=== PATIENT | male | born 1955 | race Caucasian/White ===

== ENCOUNTER → 2016-06-29 | Outpatient (CLI) | payer OTHER ==
[2016-03-19 20:08] VITALS: BP 141/81
--- NOTE | 2016-06-29 09:58 | US ---
HISTORY: Right upper quadrant pain, nausea, vomiting Study: Right upper quadrant ultrasound Comparison: None Findings: The liver is normal in size and configuration and without significant focal cyst, mass, or biliary d uctal dilatation. No gallstones are present within the gallbladder. Gallbladder wall thickness was n ormal. The common duct measured 1.5 millimeters. The right kidney measured 10.8 x 7.2 x 6.5 centimet ers and demonstrated no solid masses, hydronephrosis, stones, or perinephric fluid collections. The pancreas was obscured by overlying bowel gas. IMPRESSION: No significant abnormality identified Reported By:
== END ==
LOC: RAD 08:36
PROVIDERS: ATTEND Nurse Practitioner Family
DX: R10.11 Right upper quadrant pain (principal); R10.84 Generalized abdominal pain; R11.2 Nausea with vomiting, unspecified; R19.7 Diarrhea, unspecified
CPT/HCPCS: 76705

== ENCOUNTER → 2016-07-01 | Outpatient (CLI) | payer OTHER ==
[2016-03-19 20:08] VITALS: BP 141/81
--- NOTE | 2016-07-01 13:55 | NM ---
HIDA SCAN WITH EJECTION FRACTION. HISTORY: Right upper quadrant pain Comparison: None Technique: Multiple scintigraphic images of the abdomen were obtained the intravenous administration of 5.5 mCi of technetium labeled Choletec. Following distention of the gallbladder with radiotracer a 8 oz boost was given. An estimated gallb ladder ejection fraction was calculated. Findings: Homogeneous uptake of radiotracer is seen throughout the liver. The intrabiliary ductal system is o bserved normally. The common hepatic and common bile duct appear unremarkable with normal biliary-b owel transit. The gallbladder is observed to fill normally. A decreased gallbladder ejection fraction of 18.5 (normal > 35%) is observed. IMPRESSION: 1. No evidence of cystic duct obstruction. 2. Decreased gallbladder ejection fraction of 18.5 percent. Reported By:
== END ==
LOC: RAD 08:50
PROVIDERS: ATTEND Nurse Practitioner Family
DX: R10.11 Right upper quadrant pain (principal); R10.84 Generalized abdominal pain; R11.2 Nausea with vomiting, unspecified; R19.7 Diarrhea, unspecified
CPT/HCPCS: 78227

== ENCOUNTER 2018-02-28 18:55 | Inpatient (IN) ==
[2018-02-28 22:42] LABS: ABG BASE EXCESS 1.2 mmol/L (-2.0-2.0)
[2018-02-28 22:43] LABS: BASOPHILS % (AUTO) 0.4 % (0.2-1.0); HEMATOCRIT 45.8 % (42.0-54.0); HEMOGLOBIN 15.5 g/dL (13.5-18.0); LYMPHOCYTES # (AUTO) 1.6 X10^3/uL (1.3-2.9); LYMPHOCYTES % (AUTO) 14.3 % (21.0-51.0); MEAN CORPUSCULAR HEMOGLOBIN 30.3 pg (27.0-34.0); MEAN CORPUSCULAR HGB CONC 33.8 g/dL (33.0-35.0); MEAN CORPUSCULAR VOLUME 89.9 fL (80.0-100.0); MEAN PLATELET VOLUME 8.5 fL (7.4-11.0); MONOCYTES # (AUTO) 0.9 x10^3/uL (0.3-0.8); MONOCYTES % (AUTO) 7.7 % (0.0-13.0); NEUTROPHILS # (AUTO) 8.7 x10^3/uL (2.2-4.8); NEUTROPHILS % (AUTO) 77.6 % (42.0-75.0); PLATELET COUNT 131 X10^3/uL (150.0-450.0); RED BLOOD COUNT 5.09 X10^6/uL (4.7-6.0); RED CELL DISTRIBUTION WIDTH 13.9 % (11.6-16.5); WHITE BLOOD COUNT 11.2 X10^3/uL (3.6-10.0)
[2018-02-28 22:43] LABS: ABG ALLEN TEST POS
--- NOTE | 2018-02-28 22:44 | DR.URIAD ---
HPI Time Seen Time Seen by Provider: 02/28/18 22:31 PCP Primary Care Physician: BRYAN Complaint Chief Complaint:: PT C/O SORE THROAT COUGH FEVER CHEST WALL PAIN FROM COUGHING Self Treatment fo Chief Complaint: BEEN TREATED BY JARETH Source History Provided: Patient Mode of Arrival Mode of Arrival: Ambulatory Timing Onset of Chief Complaint: 02/26/18 PMH PMH Past Medical History: Yes Past Medical History: Arthritis, Asthma, COPD, Diabetes, Dyslipidemia, GERD, Hypertension, [place] and Sleep Apnea Past Surgical History: Yes Surgical History: Cholecystectomy and Ortho Surgery Past Surgical History Comment: NECK,BACK,RT HAND,TESTICLES HYDROCYLE Family History History of Family Medical Conditions: Yes Family Medical History: Diabetes Mellitus, Cancer, [place] and Hypertension Social History Does any household member use tobacco: No Alcohol Use: None Do you use any recreational Drugs:: No Lives With: Family Lives Where: Home infectious screening In the last 2 months have you had wt loss of >10#?: NO Have you had fever, night sweats or hemotysis?: No Have you traveled outside the country in the last 6 months?: No Isolation: Standard PE Vital Signs Vitals: Temperature 102.2 F Pulse Rate [Right Brachial] 114 Pulse Rate 114 Respiratory Rate 22 Blood Pressure [Left Calf] 132/64 Blood Pressure 134/60 O2 Sat by Pulse Oximetry 92 General Limitations: No Limitations General Appearance: Alert and In No Apparent Distress Head Head Exam: Normal Inspection, Atraumatic and Normocephalic Eyes Eye exam: Normal Appearance, PERRL and EOMI; negative Scleral Icterus and Conjunctival Injection ENT ENT Exam: Normal Exam, Normal Oropharynx and Normal External Ear Exam External Ear Exam: Normal External Inspection TM/Canal Exam: Bilateral: Normal Nose Exam: Normal Nose Exam Nasal Speculum Exam: Bilateral: Normal Mouth Exam: Normal Inspection Throat Exam: Normal Inspection and Tonsillar Erythema Neck Neck Exam: Normal Inspection and Full ROM Chest Chest Inspection: Normal Inspection and Symmetric Chest Wall Rise Respiratory Respiratory Exam: Normal Lung Sounds Bilat; negative Accessory Muscle Use and Chest Wall Tenderness Respiratory Exam: Bilateral: Rhonchi Cardiovascular Cardiovascular Exam: Regular Rate and Normal Rhythm Abdominal Exam Abdominal Exam: Normal Inspection, Normal Bowel Sounds and Soft Extremeties Extremities Exam: Normal Inspection and Full ROM Back Back Exam: Normal Inspection and Full ROM Neurologic Neurological Exam: Alert, Oriented X3 and CN II-XII Intact Psychiatric Psychiatric Exam: Normal Affect and Normal Mood Skin Skin Exam: Warm, Dry and Intact COURSE Treatment Treatment: Ceftriaxone 1mg IV +Doxycycline, cultures obtained Consultation Called: 23:36 Consultation Comments: Dr. ordonez agreed to admit for further evaluation and treatment ROR Labs Reviewed Laboratory Results Reviewed?: Yes Result Diagrams: 02/28/18 22:25 02/28/18 22:25 Laboratory: 02/28/18 00:01 Sputum - Expectorated Sputum - Final WBC 11.2 X10^3/uL (3.6-10.0) H 02/28/18 22:25 RBC 5.09 X10^6/uL (4.7-6.0) 02/28/18 22:25 Hgb 15.5 g/dL (13.5-18.0) 02/28/18 22:25 Hct 45.8 % (42.0-54.0) 02/28/18 22:25 MCV 89.9 fL (80.0-100.0) 02/28/18 22:25 MCH 30.3 pg (27.0-34.0) 02/28/18 22:25 MCHC 33.8 g/dL (33.0-35.0) 02/28/18 22:25 RDW 13.9 % (11.6-16.5) 02/28/18 22:25 Plt Count 131 X10^3/uL (150.0-450.0) L 02/28/18 22:25 MPV 8.5 fL (7.4-11.0) 02/28/18 22:25 Neut % (Auto) 77.6 % (42.0-75.0) H 02/28/18 22:25 Lymph % (Auto) 14.3 % (21.0-51.0) L 02/28/18 22:25 [place] % (Auto) 7.7 % (0.0-13.0) 02/28/18 22: Eos % (Auto) 0.0 % (0.9-2.9) L 02/28/18 22:25 Baso % (Auto) 0.4 % (0.2-1.0) 02/28/18 22:25 Neut # (Auto) 8.7 x10^3/uL (2.2-4.8) H 02/28/18 22:25 Lymph # (Auto) 1.6 X10^3/uL (1.3-2.9) 02/28/18 22:25 [place] # (Auto) 0.9 x10^3/uL (0.3-0.8) H 02/28/18 22:25 Eos # (Auto) 0.0 x10^3/uL (0.0-0.2) 02/28/18 22:25 Baso # (Auto) 0.0 X10^3/uL (0.0-0.1) 02/28/18 22:25 Absolute Nucleated RBC 0.0 /100WBC 02/28/18 22:25 Sample Site Right radial 02/28/18 22:30 ABG pH 7.450 (7.35-7.45) 02/28/18 22:30 ABG pCO2 36.0 mmHg (35.0-45.0) 02/28/18 22:30 ABG pO2 60.0 mmHg (80.0-100.0) L 02/28/18 22:30 ABG HCO3 25.0 mmol/L (22-26) 02/28/18 22:30 ABG O2 Saturation 92.0 % (90-100) 02/28/18 22:30 ABG Base Excess 1.2 mmol/L (-2.0-2.0) 02/28/18 22:30 Darren Test Pos 02/28/18 22:30 A-a Gradient 45.0 mmHg 02/28/18 22:30 FiO2 21.0 02/28/18 22:30 Blood Gas Comments Aidan well jts 02/28/18 22:30 Sodium 138 mmol/L (136-145) 02/28/18 22:25 Corrected Sodium TNP 02/28/18 22:25 Potassium 3.7 mmol/L (3.5-5.1) 02/28/18 22:25 Chloride 98 mmol/L (98-107) 02/28/18 22:25 Carbon Dioxide 28.0 mmol/L (21-32) 02/28/18 22:25 BUN 24 mg/dL (7-18) H 02/28/18 22:25 Creatinine 1.61 mg/dL (0.70-1.30) H 02/28/18 22:25 Est GFR (MDRD) Af Amer 56 (>60) L 02/28/18 22:25 Est GFR (MDRD) Non-Af 46 (>60) L 02/28/18 22:25 Glucose 84 mg/dL (65-99) 02/28/18 22:25 Lactic Acid 1.5 mmol/L (0.4-2.0) 02/28/18 22:30 Calcium 8.2 mg/dL (8.5-10.1) L 02/28/18 22:25 Corrected Calcium TNP 02/28/18 22:25 Total Bilirubin 0.30 mg/dL (0.2-1.0) 02/28/18 22:25 AST 47 Units/L (15-37) H 02/28/18 22:25 ALT 44 Units/L (12-78) 02/28/18 22:25 Alkaline Phosphatase 143 Units/L (46-116) H 02/28/18 22:25 Total Protein 8.0 g/dL (6.4-8.2) 02/28/18 22:25 Albumin 4.0 g/dL (3.4-5.0) 02/28/18 22:25 Globulin 4.0 g/dL (2.5-4.5) 02/28/18 22:25 Albumin/Globulin Ratio 1.0 Ratio (1.1-2.1) L 02/28/18 22:25 S. pyogenes (TEM-PCR) Not detected (NOT DETECT) 02/28/18 22:10 Other Results Comments: Chest: The cardio-pericardial silhouette is stably enlarged with chronic prominence of aviva-hilar lung markings and interstitium. Subtle patchy airspace opacities within the right upper lobe with mild volume loss and no effusion or pneumothorax. Lungs are well inflated otherwise. Pulmonary vascularity is normal...Findings concerning for right upper lobe pneumonia superimposed upon COPD. Correlate clinically and follow up to resolution. XRAY XRAY Interpreted by: Radiologist ADDITIONAL NOTES Additional Notes Additional Notes: Patient admitted for further treatment and evaluation
[2018-02-28] MEDS ORDERED: DUONEB 0.5 MG/3 MG NEB ONE (22:46)
[2018-02-28 22:52] LABS: ALANINE AMINOTRANSFERASE 44 Units/L (12-78); ALKALINE PHOSPHATASE 143 Units/L (46-116); ASPARTATE AMINO TRANSFERASE 47 Units/L (15-37); BLOOD UREA NITROGEN 24 mg/dL (7-18); CALCIUM 8.2 mg/dL (8.5-10.1); CHLORIDE 98 mmol/L (98-107); CREATININE 1.61 mg/dL (0.70-1.30); SODIUM 138 mmol/L (136-145); eGFR NON BLACK RACES 46 (>60)
[2018-02-28] MEDS ORDERED: DUONEB 0.5 MG/3 MG ONE (22:52)
--- NOTE | 2018-02-28 22:58 | RAD ---
CHEST RADIOGRAPHS PA AND LATERAL VIEWS CLINICAL HISTORY: 62-year-old male with sore throat, cough and fever with chest wall pain from coughing. History of asthma and COPD. COMPARISON: Chest radiographs 03/19/2016. FINDINGS: ACDF is unchanged. The cardiopericardial silhouette is stably enlarged with chronic prominence of perihilar lung markings and interstitium. Subtle patchy airspace opacities within the right upper lobe with mild volume loss and no effusion or pneumothorax. Lungs are well inflated otherwise. Pulmonary vascularity is normal. Imaged osseous structures are intact. Soft tissues are unremarkable. IMPRESSION: Findings concerning for right upper lobe pneumonia superimposed upon COPD. Correlate clinically and follow-up to resolution. Reported By:
[2018-02-28] MEDS ORDERED: TYLENOL 325 MG TAB PO ONE ×2 (23:55→23:56)
[2018-03-01] MEDS ORDERED: NS 1/2 1000 ML IV 1,000 ML IV ONE ×2 (00:08→20:57)
[2018-03-01] MEDS: ROCEPHIN VIAL 1 GRAM IVP SCH ×2 (00:14→08:35)
[2018-03-01] MEDS: NS 1/2 1000 ML IV 1,000 ML IV SCH ×3 (00:14→21:05)
[2018-03-01 01:44] VITALS: BMI 27.2
[2018-03-01] MEDS: TUSSIONEX PENNKINETIC SUSP PO PRN (01:45)
[2018-03-01] MEDS: TYLENOL 325 MG TAB PO PRN ×2 (04:50→13:31)
[2018-03-01] MEDS: DUONEB 0.5 MG/3 MG NEB SCH ×5 (05:32→20:29)
[2018-03-01] MEDS: NEURONTIN CAP 400 MG PO SCH ×3 (05:39→21:03)
[2018-03-01] MEDS: XANAX PO SCH ×3 (05:40→21:03)
[2018-03-01 06:08] LABS: BASOPHILS % (AUTO) 0.2 % (0.2-1.0); HEMATOCRIT 42.3 % (42.0-54.0); HEMOGLOBIN 14.3 g/dL (13.5-18.0); LYMPHOCYTES # (AUTO) 1.3 X10^3/uL (1.3-2.9); LYMPHOCYTES % (AUTO) 16.5 % (21.0-51.0); MEAN CORPUSCULAR HGB CONC 33.9 g/dL (33.0-35.0); MEAN CORPUSCULAR VOLUME 88.5 fL (80.0-100.0); MEAN PLATELET VOLUME 8.4 fL (7.4-11.0); MONOCYTES # (AUTO) 0.7 x10^3/uL (0.3-0.8); MONOCYTES % (AUTO) 8.3 % (0.0-13.0); PLATELET COUNT 118 X10^3/uL (150.0-450.0); RED BLOOD COUNT 4.78 X10^6/uL (4.7-6.0); RED CELL DISTRIBUTION WIDTH 14.3 % (11.6-16.5)
[2018-03-01 06:22] LABS: ALANINE AMINOTRANSFERASE 36 Units/L (12-78); ALBUMIN 3.3 g/dL (3.4-5.0); ALKALINE PHOSPHATASE 116 Units/L (46-116); ASPARTATE AMINO TRANSFERASE 45 Units/L (15-37); BLOOD UREA NITROGEN 21 mg/dL (7-18); CALCIUM 7.9 mg/dL (8.5-10.1); CARBON DIOXIDE 25.2 mmol/L (21-32); CHLORIDE 98 mmol/L (98-107); COR CA(FOR HYPOALB) 8.5 mg/dL (8.5-10.1); CREATININE 1.38 mg/dL (0.70-1.30); SODIUM 136 mmol/L (136-145); eGFR NON BLACK RACES 55 (>60)
[2018-03-01] MEDS ORDERED: KLOR-CON PO PRN (06:35)
[2018-03-01] MEDS ORDERED: K-DUR TAB 20 MEQ PO PRN (06:35)
[2018-03-01] MEDS ORDERED: POTASSIUM CHLORIDE LIQ 20 MEQ UDC PO PRN (06:35)
[2018-03-01] MEDS ORDERED: POTASSIUM CHL 60 MEQ/NS 0.45% 500 ML IV PRN (06:35)
[2018-03-01] MEDS ORDERED: MICRO K EXTEN CAP 10 MEQ PO PRN (06:35)
[2018-03-01] MEDS ORDERED: POTASSIUM CHL 40 MEQ/NS 0.45% 500 ML IV PRN (06:35)
[2018-03-01] MEDS ORDERED: K-RIDER 10 MEQ/NS 100 ML 10 MEQ/100 ML BAG IV PRN (06:35)
[2018-03-01] MEDS: MAGNESIUM SULFATE 1 GRAM/100 mL PREMIX 1 GM/100 ML BAG IV PRN ×6 (07:25→15:00)
[2018-03-01] MEDS: NORVASC TAB 5 MG PO SCH (08:33)
[2018-03-01] MEDS: ROBITUSSIN DM PO SCH ×4 (08:33→21:03)
[2018-03-01] MEDS: FLONASE NASAL SPRAY ENOSTRIL SCH (08:33)
[2018-03-01] MEDS ORDERED: VIBRAMYCIN 100 MG in NS 100 ML IV + SPIKE MINIBAG* 100 ML IV SCH (09:00)
[2018-03-01] MEDS ORDERED: ZITHROMAX INJ 500 MG VIAL 500 MG in NS 250 ML IV 250 ML IV SCH (10:35)
[2018-03-01] MEDS ORDERED: REFLEX: PROVENTIL NEB & PulmiCORT NEB~ NEB SCH (10:45)
[2018-03-01] MEDS ORDERED: LEVAQUIN PREMIX IV 500 MG 500 MG/100 ML BAG IV SCH (11:00)
[2018-03-01] MEDS: PULMICORT NEB TX 0.5 MG NEB SCH (20:29)
[2018-03-01] MEDS: ZANTAC PO SCH (21:03)
[2018-03-01] MEDS: PERCOCET TAB 5/325 MG PO PRN (21:04)
[2018-03-01] MEDS: SNACK - Diabetic Appropriate PO SCH (21:07)
[2018-03-02] MEDS: DUONEB 0.5 MG/3 MG NEB SCH ×6 (01:07→20:07)
[2018-03-02] MEDS: TUSSIONEX PENNKINETIC SUSP PO PRN (03:15)
[2018-03-02] MEDS: PERCOCET TAB 5/325 MG PO PRN ×2 (04:15→12:40)
[2018-03-02] MEDS: XANAX PO SCH ×3 (05:17→21:13)
[2018-03-02] MEDS: NEURONTIN CAP 400 MG PO SCH ×3 (05:18→21:13)
[2018-03-02] MEDS: NS 1/2 1000 ML IV 1,000 ML IV SCH ×2 (05:20→12:44)
[2018-03-02 06:31] LABS: BASOPHILS % (AUTO) 0.2 % (0.2-1.0); EOSINOPHILS % (AUTO) 0.1 % (0.9-2.9); HEMATOCRIT 41.1 % (42.0-54.0); HEMOGLOBIN 14.1 g/dL (13.5-18.0); LYMPHOCYTES # (AUTO) 1.6 X10^3/uL (1.3-2.9); LYMPHOCYTES % (AUTO) 22.2 % (21.0-51.0); MEAN CORPUSCULAR HEMOGLOBIN 30.5 pg (27.0-34.0); MEAN CORPUSCULAR HGB CONC 34.2 g/dL (33.0-35.0); MEAN CORPUSCULAR VOLUME 89.4 fL (80.0-100.0); MEAN PLATELET VOLUME 8.4 fL (7.4-11.0); MONOCYTES # (AUTO) 0.5 x10^3/uL (0.3-0.8); MONOCYTES % (AUTO) 7.4 % (0.0-13.0); NEUTROPHILS % (AUTO) 70.1 % (42.0-75.0); PLATELET COUNT 124 X10^3/uL (150.0-450.0); RED CELL DISTRIBUTION WIDTH 14.1 % (11.6-16.5); WHITE BLOOD COUNT 7.2 X10^3/uL (3.6-10.0)
[2018-03-02 06:50] LABS: ALANINE AMINOTRANSFERASE 34 Units/L (12-78); ALBUMIN 3.1 g/dL (3.4-5.0); ALKALINE PHOSPHATASE 108 Units/L (46-116); ASPARTATE AMINO TRANSFERASE 41 Units/L (15-37); BLOOD UREA NITROGEN 15 mg/dL (7-18); CARBON DIOXIDE 26.7 mmol/L (21-32); CHLORIDE 100 mmol/L (98-107); COR CA(FOR HYPOALB) 8.7 mg/dL (8.5-10.1); COR NA(FOR HYPERGLY) 140 mmol/L (136-145); CREATININE 1.21 mg/dL (0.70-1.30); MAGNESIUM 2.1 mg/dL (1.7-2.9); SODIUM 138 mmol/L (136-145); TOTAL PROTEIN 6.9 g/dL (6.4-8.2); eGFR NON BLACK RACES > 60 (>60)
--- NOTE | 2018-03-02 06:55 | RAD ---
HISTORY: Fever, cough Study: Chest AP portable Comparison: 02/28/2018 Findings: The heart is within normal limits in size. The nay are normal. Right upper lobe infiltrate is unchanged and most consistent with pneumonia. The remainder of the lung batista are clear. No pleural effusions are identified. The bony thorax is unremarkable. IMPRESSION: No change right upper lobe infiltrate Reported By:
[2018-03-02] MEDS: LEVAQUIN PREMIX IV 500 MG 500 MG/100 ML BAG IV SCH (08:57)
[2018-03-02] MEDS: NORVASC TAB 5 MG PO SCH (08:57)
[2018-03-02] MEDS: FLONASE NASAL SPRAY ENOSTRIL SCH (08:57)
[2018-03-02] MEDS: ZITHROMAX INJ 500 MG VIAL 500 MG in NS 250 ML IV 250 ML IV SCH (08:57)
[2018-03-02] MEDS: ROBITUSSIN DM PO SCH ×4 (08:58→21:13)
[2018-03-02] MEDS: ZANTAC PO SCH ×2 (08:58→21:13)
[2018-03-02] MEDS: PULMICORT NEB TX 0.5 MG NEB SCH ×2 (09:46→20:07)
[2018-03-02] MEDS: MORPHINE SULFATE INJ 2 MG INJ IVP PRN ×2 (10:00→16:20)
--- NOTE | 2018-03-02 10:37 | CT ---
HISTORY: Cough, fever, pneumonia Study: Chest CT with contrast Comparison: Plain film same date Technique: Axial post-contrast images with coronal and sagittal reformats. Dose reduction procedures were used with mA/kv adjusted for body size. Findings: Examination of the mediastinum demonstrated no evidence for mediastinal masses, enlarged mediastinal adenopathy, or pleural effusions. The thoracic aorta is normal. No chest wall or axillary abnormality is identified. Those portions of the upper abdominal organs visualized were within normal limits. Examination of the lung batista demonstrated patchy and confluent alveolar infiltrates with the confluence most prominent in the posterior segment. These findings are most consistent with pneumonia. Scattered subtle patchy infiltrates are present in the right middle, right lower, and left lower lobes consistent with multifocal pneumonia. No nodules, masses, bronchiectasis or peribronchial thickening is identified. IMPRESSION: Findings most consistent with multifocal pneumonia bilaterally most prominent with some alveolar confluent pneumonia in the posterior segment of the right upper lobe. Reported By:
--- NOTE | 2018-03-02 12:09 | DR.URIAD ---
HPI Time Seen Time Seen by Provider: 02/28/18 22:31 PCP Primary Care Physician: CHELSIE Complaint Chief Complaint:: PT C/O SORE THROAT COUGH FEVER CHEST WALL PAIN FROM COUGHING Self Treatment fo Chief Complaint: BEEN TREATED BY JARETH Source History Provided: Patient Mode of Arrival Mode of Arrival: Ambulatory Timing Onset of Chief Complaint: 02/26/18 Quality Shortness of Breath: Mild PMH PMH Past Surgical History: Yes Surgical History: Cholecystectomy and Ortho Surgery Family History History of Family Medical Conditions: Yes Family Medical History: Diabetes Mellitus, Cancer, [place] and Hypertension Social History Does patient currently use any type of tobacco product: No Have you used tobacco products in the last 12 months: No Type of Tobacco Use: None Does any household member use tobacco: No Alcohol Use: None Do you use any recreational Drugs:: No Lives With: Family Lives Where: Home infectious screening In the last 2 months have you had wt loss of >10#?: NO Have you had fever, night sweats or hemotysis?: No Have you traveled outside the country in the last 6 months?: No Isolation: Standard PE Vital Signs Vitals: Temperature 98.3 F Pulse Rate [Right Brachial] 85 Pulse Rate 80 Respiratory Rate 20 Blood Pressure [Right Arm] 114/56 Blood Pressure [Left Calf] 132/64 Blood Pressure 134/60 O2 Sat by Pulse Oximetry 98 ROR Labs Reviewed Result Diagrams: 03/02/18 05:37 03/02/18 05:37 Laboratory: 02/28/18 22:30 Blood Blood Culture - Preliminary 02/28/18 22:25 Blood Blood Culture - Preliminary 02/28/18 00:01 Sputum - Expectorated Sputum Sputum Culture - Preliminary 02/28/18 00:01 Sputum - Expectorated Sputum - Final WBC 7.2 X10^3/uL (3.6-10.0) 03/02/18 05:37 RBC 4.60 X10^6/uL (4.7-6.0) L 03/02/18 05:37 Hgb 14.1 g/dL (13.5-18.0) 03/02/18 05:37 Hct 41.1 % (42.0-54.0) L 03/02/18 05:37 MCV 89.4 fL (80.0-100.0) 03/02/18 05:37 MCH 30.5 pg (27.0-34.0) 03/02/18 05:37 MCHC 34.2 g/dL (33.0-35.0) 03/02/18 05:37 RDW 14.1 % (11.6-16.5) 03/02/18 05:37 Plt Count 124 X10^3/uL (150.0-450.0) L 03/02/18 05:37 MPV 8.4 fL (7.4-11.0) 03/02/18 05:37 Neut % (Auto) 70.1 % (42.0-75.0) 03/02/18 05:37 Lymph % (Auto) 22.2 % (21.0-51.0) 03/02/18 05:37 [place] % (Auto) 7.4 % (0.0-13.0) 03/02/18 05:37 Eos % (Auto) 0.1 % (0.9-2.9) L 03/02/18 05:37 Baso % (Auto) 0.2 % (0.2-1.0) 03/02/18 05:37 Neut # (Auto) 5.0 x10^3/uL (2.2-4.8) H 03/02/18 05:37 Lymph # (Auto) 1.6 X10^3/uL (1.3-2.9) 03/02/18 05:37 [place] # (Auto) 0.5 x10^3/uL (0.3-0.8) 03/02/18 05:37 Eos # (Auto) 0.0 x10^3/uL (0.0-0.2) 03/02/18 05:37 Baso # (Auto) 0.0 X10^3/uL (0.0-0.1) 03/02/18 05:37 Absolute Nucleated RBC 0.1 /100WBC 03/02/18 05:37 Sample Site Right radial 02/28/18 22:30 ABG pH 7.450 (7.35-7.45) 02/28/18 22:30 ABG pCO2 36.0 mmHg (35.0-45.0) 02/28/18 22:30 ABG pO2 60.0 mmHg (80.0-100.0) L 02/28/18 22:30 ABG HCO3 25.0 mmol/L (22-26) 02/28/18 22:30 ABG O2 Saturation 92.0 % (90-100) 02/28/18 22:30 ABG Base Excess 1.2 mmol/L (-2.0-2.0) 02/28/18 22:30 Darren Test Pos 02/28/18 22:30 A-a Gradient 45.0 mmHg 02/28/18 22:30 FiO2 21.0 02/28/18 22:30 Blood Gas Comments Aidan well jts 02/28/18 22:30 Sodium 138 mmol/L (136-145) 03/02/18 05:37 Corrected Sodium 140 mmol/L (136-145) 03/02/18 05:37 Potassium 3.9 mmol/L (3.5-5.1) 03/02/18 05:37 Chloride 100 mmol/L (98-107) 03/02/18 05:37 Carbon Dioxide 26.7 mmol/L (21-32) 03/02/18 05:37 BUN 15 mg/dL (7-18) 03/02/18 05:37 Creatinine 1.21 mg/dL (0.70-1.30) 03/02/18 05:37 Est GFR (MDRD) Af Amer > 60 (>60) 03/02/18 05:37 Est GFR (MDRD) Non-Af > 60 (>60) 03/02/18 05:37 Glucose 194 mg/dL (65-99) H 03/02/18 05:37 POC Glucose (mg/dL) 201 mg/dL (65-99) H 03/02/18 11:27 Lactic Acid 1.5 mmol/L (0.4-2.0) 02/28/18 22:30 Calcium 8.0 mg/dL (8.5-10.1) L 03/02/18 05:37 Corrected Calcium 8.7 mg/dL (8.5-10.1) 03/02/18 05:37 Magnesium 2.1 mg/dL (1.7-2.9) 03/02/18 05:37 Total Bilirubin 0.30 mg/dL (0.2-1.0) 03/02/18 05:37 AST 41 Units/L (15-37) H 03/02/18 05:37 ALT 34 Units/L (12-78) 03/02/18 05:37 Alkaline Phosphatase 108 Units/L (46-116) 03/02/18 05:37 Total Protein 6.9 g/dL (6.4-8.2) 03/02/18 05:37 Albumin 3.1 g/dL (3.4-5.0) L 03/02/18 05:37 Globulin 3.8 g/dL (2.5-4.5) 03/02/18 05:37 Albumin/Globulin Ratio 0.8 Ratio (1.1-2.1) L 03/02/18 05:37 Influenza Type A (PCR) Negative (NEGATIVE) 03/01/18 11:10 Influenza Type B (PCR) Negative (NEGATIVE) 03/01/18 11:10 S. pyogenes (TEM-PCR) Not detected (NOT DETECT) 02/28/18 22:10
[2018-03-02] MEDS ORDERED: NS 1/2 1000 ML IV 1,000 ML IV ONE (12:30)
--- NOTE | 2018-03-02 15:33 | DR.H&P ---
H&P - History & Physical for Day of: H&P Date: 02/28/18 - Chief Complaint Chief Complaint: SOB, FEVER, CCC - History of Present Illness History of Present Illness: 62 WM ER ADMISSION AFTER PRESENTING WITH CO SOB, INCREASED WHEEZING FEVER AND CHILLS. PT STATES HE HAD BEEN SICK FOR 4-5 DAYS. PT HAD IM ROCEPHIN WITH DECADRON IM AND PO DOXY, THEN 2ND ROCEPHIN SHOT ON MONDAY. PT STATES HE REFUSED ADMISSION THEN, HE THOUGHT HE'D GET BETTER. PT STATES HE HAD OUTPT ORDER FOR LABS AND CHEST XRAY BUT "GOT WORSE" AND WENT TO ER. PT STATES HE FELT LIKE HE COULDNT GET HIS BREATH. PT HAS PMH OF DM, HTN, CHRONIC PAIN, COPD. PT ADMITTED FOR ACUTE RESP DISTRESS AND PNEUMONIA. - Past Medical History Past Medical History: [place], Hypertension, Dyslipidemia, Diabetes, COPD, Asthma, GERD, Arthritis, Sleep Apnea - Past Surgical History Surgical History: Cholecystectomy, Ortho Surgery - Family History Family Medical History: Diabetes Mellitus, Cancer, [place], Hypertension - Social History Does patient currently use any type of tobacco product: No Have you used tobacco products in the last 12 months: No Type of Tobacco Use: None Does any household member use tobacco: No Alcohol Use: None Drug Use: None - Medications Home Medications: No Known Drug Allergies Allergy (Verified 02/28/18 18:56) CONTINUE taking the following medications alprazolam 1 mg PO TID 03/01/18 [History] amlodipine 5 mg PO DAILY 03/01/18 [History] fluticasone 1 spray INTRANASAL DAILY 03/01/18 [History] gabapentin 800 mg PO TID 03/01/18 [History] glipizide-metformin 2.5 - 500 mg PO BID 03/01/18 [History] lisinopril-hydrochlorothiazide 20 - 25 mg PO BID 03/01/18 [History] morphine 60 mg PO BID 03/01/18 [History] oxycodone-acetaminophen 10 - 325 mg PO TID 03/01/18 [History] ranitidine HCl 150 mg PO BID 03/01/18 [History] - Review of Systems Constitutional: Fever, Chills, Weakness Eyes: No Symptoms Reported ENT: Nose Discharge, Nose Congestion, Mouth Pain, Throat Pain Respiratory: Cough, Pleuritic Pain, Sputum, Wheezing Cardiovascular: No Symptoms Reported. denies: Edema Gastrointestinal: Nausea Genitourinary: No Symptoms Reported Musculoskeletal: Back Pain Skin: No Symptoms Reported Neurological: Weakness - Physical Exam Vital Signs: Temperature 98.3 F Pulse Rate [Right Brachial] 85 Pulse Rate 80 Respiratory Rate 20 Blood Pressure [Right Arm] 114/56 Blood Pressure [Left Calf] 132/64 Blood Pressure 134/60 O2 Sat by Pulse Oximetry 98 Oriented: Normal Eyes: Normal Ear: Normal Nose: Normal Throat: Red, Dry Respiratory: Rhonchi Throughout, Wheezes Throughout, RLL Diminished, LLL Diminished Cardiovascular: Tachycardia. negative: Edema : Normal Auscultation: Bowel Sounds: Normal Palpation: Normal Tenderness: Normal Skin: Normal Musculoskeletal: Back:Thoracic, Back:Lumbar Psychiatric: Anxiety Affect: Anxious Speech Pattern: Clear, Appropriate - Assessment/Plan (1) Pneumonia Status: Acute Plan: ADMIT, ICU, PNEUMONIA PROTOCOL. IV ATBX, RESP THERAPY, SUPPLEMENTAL O2, REPEAT ABG. CXR Q AM, CBC CMP ON ADMISSION. BP AND BS CONTROL. VERIFY HOME MEDICATION, IV STEROIDS (2) Acute respiratory distress Status: Acute (3) Diabetes Status: Acute (4) Hypertension Status: Acute (5) Chronic lumbar radiculopathy Status: Acute - Allergies Allergies/Adverse Reactions: Allergies Allergy/AdvReac Type Severity Reaction Status Date / Time No Known Drug Allergies Allergy Verified 02/28/18 18:56
--- NOTE | 2018-03-02 15:39 | PCM.PROG ---
Progress Note - Progress Note for Day of Date of Exam: 03/02/18 - Subjective Subjective: 62 WM ER ADMISSION ON 02/28 WITH ACUTE RESP DISTRESS AND PNEUMONIA. PT CURRENTLY ON PNEUMONIA PROTOCOL WITH BLOOD AND SPUTUM CULTURES PENDING. PT ON SUPPLEMENTAL O2. PT REPORTS FEELING A LITTLE IMPROVED. PT CONTINUES WITH EXP WHEEZES AND CENTRAL RHONCHI AND THICK SPUTUM PRODUCTION. PLAN TO CONTINUE RESP THERAPY, REPEAT AM LABS AND CT CHEST WITH CONTRAST, WILL CONTINUE TO HOLD PO METFORMIN - Past Medical Family Social History Past Med/Fam/Surg Hx: No changes since H&P Allergies: Allergies No Known Drug Allergies Allergy (Verified 02/28/18 18:56) - Review of Systems ROS: No change since H&P - Vital Signs and I&O's Vital Signs: Temperature 98.3 F Pulse Rate [Right Brachial] 85 Pulse Rate 80 Respiratory Rate 20 Blood Pressure [Right Arm] 114/56 Blood Pressure [Left Calf] 132/64 Blood Pressure 134/60 O2 Sat by Pulse Oximetry 98 Intake and Output: Intake & Output 02/28/18 03/01/18 03/02/18 03/03/18 11:59 11:59 11:59 11:59 Intake Total 875 / 875 3460 / 3460 Output Total 600 / 600 3950 / 3950 Balance 275 / 275 -490 / -490 - Physical Exam Oriented: Normal Eyes: Normal Ear: Normal Nose: Normal Throat: Red, Dry Respiratory: Diminished, Rhonchi Cardiovascular: Tachycardia. negative: Edema : Normal Auscultation: Bowel Sounds: Normal Tenderness: Normal Skin: Normal Musculoskeletal: Back:Thoracic, Back:Lumbar Psychiatric: Anxiety Affect: Anxious Speech Pattern: Clear, Appropriate - Laboratory and Diagnostics Result Diagrams: 03/02/18 05:37 03/02/18 05:37 Labs: 02/28/18 22:30 Blood Blood Culture - Preliminary 02/28/18 22:25 Blood Blood Culture - Preliminary 02/28/18 00:01 Sputum - Expectorated Sputum Sputum Culture - Preliminary 02/28/18 00:01 Sputum - Expectorated Sputum - Final Laboratory WBC 7.2 X10^3/uL (3.6-10.0) 03/02/18 05:37 RBC 4.60 X10^6/uL (4.7-6.0) L 03/02/18 05:37 Hgb 14.1 g/dL (13.5-18.0) 03/02/18 05:37 Hct 41.1 % (42.0-54.0) L 03/02/18 05:37 MCV 89.4 fL (80.0-100.0) 03/02/18 05:37 MCH 30.5 pg (27.0-34.0) 03/02/18 05:37 MCHC 34.2 g/dL (33.0-35.0) 03/02/18 05:37 RDW 14.1 % (11.6-16.5) 03/02/18 05:37 Plt Count 124 X10^3/uL (150.0-450.0) L 03/02/18 05:37 MPV 8.4 fL (7.4-11.0) 03/02/18 05:37 Neut % (Auto) 70.1 % (42.0-75.0) 03/02/18 05:37 Lymph % (Auto) 22.2 % (21.0-51.0) 03/02/18 05:37 [place] % (Auto) 7.4 % (0.0-13.0) 03/02/18 05:37 Eos % (Auto) 0.1 % (0.9-2.9) L 03/02/18 05:37 Baso % (Auto) 0.2 % (0.2-1.0) 03/02/18 05:37 Neut # (Auto) 5.0 x10^3/uL (2.2-4.8) H 03/02/18 05:37 Lymph # (Auto) 1.6 X10^3/uL (1.3-2.9) 03/02/18 05:37 [place] # (Auto) 0.5 x10^3/uL (0.3-0.8) 03/02/18 05:37 Eos # (Auto) 0.0 x10^3/uL (0.0-0.2) 03/02/18 05:37 Baso # (Auto) 0.0 X10^3/uL (0.0-0.1) 03/02/18 05:37 Absolute Nucleated RBC 0.1 /100WBC 03/02/18 05:37 Sample Site Right radial 02/28/18 22:30 ABG pH 7.450 (7.35-7.45) 02/28/18 22:30 ABG pCO2 36.0 mmHg (35.0-45.0) 02/28/18 22:30 ABG pO2 60.0 mmHg (80.0-100.0) L 02/28/18 22:30 ABG HCO3 25.0 mmol/L (22-26) 02/28/18 22:30 ABG O2 Saturation 92.0 % (90-100) 02/28/18 22:30 ABG Base Excess 1.2 mmol/L (-2.0-2.0) 02/28/18 22:30 Darren Test Pos 02/28/18 22:30 A-a Gradient 45.0 mmHg 02/28/18 22:30 FiO2 21.0 02/28/18 22:30 Blood Gas Comments Aidan well jts 02/28/18 22:30 Sodium 138 mmol/L (136-145) 03/02/18 05:37 Corrected Sodium 140 mmol/L (136-145) 03/02/18 05:37 Potassium 3.9 mmol/L (3.5-5.1) 03/02/18 05:37 Chloride 100 mmol/L (98-107) 03/02/18 05:37 Carbon Dioxide 26.7 mmol/L (21-32) 03/02/18 05:37 BUN 15 mg/dL (7-18) 03/02/18 05:37 Creatinine 1.21 mg/dL (0.70-1.30) 03/02/18 05:37 Est GFR (MDRD) Af Amer > 60 (>60) 03/02/18 05:37 Est GFR (MDRD) Non-Af > 60 (>60) 03/02/18 05:37 Glucose 194 mg/dL (65-99) H 03/02/18 05:37 POC Glucose (mg/dL) 201 mg/dL (65-99) H 03/02/18 11:27 Lactic Acid 1.5 mmol/L (0.4-2.0) 02/28/18 22:30 Calcium 8.0 mg/dL (8.5-10.1) L 03/02/18 05:37 Corrected Calcium 8.7 mg/dL (8.5-10.1) 03/02/18 05:37 Magnesium 2.1 mg/dL (1.7-2.9) 03/02/18 05:37 Total Bilirubin 0.30 mg/dL (0.2-1.0) 03/02/18 05:37 AST 41 Units/L (15-37) H 03/02/18 05:37 ALT 34 Units/L (12-78) 03/02/18 05:37 Alkaline Phosphatase 108 Units/L (46-116) 03/02/18 05:37 Total Protein 6.9 g/dL (6.4-8.2) 03/02/18 05:37 Albumin 3.1 g/dL (3.4-5.0) L 03/02/18 05:37 Globulin 3.8 g/dL (2.5-4.5) 03/02/18 05:37 Albumin/Globulin Ratio 0.8 Ratio (1.1-2.1) L 03/02/18 05:37 Influenza Type A (PCR) Negative (NEGATIVE) 03/01/18 11:10 Influenza Type B (PCR) Negative (NEGATIVE) 03/01/18 11:10 S. pyogenes (TEM-PCR) Not detected (NOT DETECT) 02/28/18 22:10 - Plan (1) Pneumonia Status: Acute Plan: PNEUMONIA PROTOCOL. IV ATBX, RESP THERAPY, SUPPLEMENTAL O2, REPEAT ABG. AM CBC CMP. BP AND BS CONTROL. VERIFY HOME MEDICATION, IV STEROIDS (2) Acute respiratory distress Status: Acute (3) Diabetes Status: Acute (4) Hypertension Status: Acute (5) Chronic lumbar radiculopathy Status: Acute
[2018-03-02] MEDS: SNACK - Diabetic Appropriate PO SCH (21:13)
[2018-03-03] MEDS: DUONEB 0.5 MG/3 MG NEB SCH ×6 (00:22→20:56)
[2018-03-03] MEDS ORDERED: NS 1/2 1000 ML IV 1,000 ML IV ONE ×2 (02:06→20:47)
[2018-03-03] MEDS: NS 1/2 1000 ML IV 1,000 ML IV SCH ×3 (02:09→23:14)
[2018-03-03] MEDS: NEURONTIN CAP 400 MG PO SCH ×3 (05:49→21:34)
[2018-03-03] MEDS: TUSSIONEX PENNKINETIC SUSP PO PRN (05:50)
[2018-03-03] MEDS: XANAX PO SCH ×3 (05:50→21:35)
[2018-03-03 06:19] LABS: BASOPHILS % (AUTO) 0.2 % (0.2-1.0); EOSINOPHILS % (AUTO) 0.2 % (0.9-2.9); HEMATOCRIT 39.9 % (42.0-54.0); HEMOGLOBIN 13.5 g/dL (13.5-18.0); LYMPHOCYTES # (AUTO) 1.1 X10^3/uL (1.3-2.9); LYMPHOCYTES % (AUTO) 17.9 % (21.0-51.0); MEAN CORPUSCULAR HEMOGLOBIN 30.4 pg (27.0-34.0); MEAN CORPUSCULAR HGB CONC 33.9 g/dL (33.0-35.0); MEAN CORPUSCULAR VOLUME 89.7 fL (80.0-100.0); MEAN PLATELET VOLUME 7.9 fL (7.4-11.0); MONOCYTES # (AUTO) 0.5 x10^3/uL (0.3-0.8); MONOCYTES % (AUTO) 8.2 % (0.0-13.0); NEUTROPHILS # (AUTO) 4.5 x10^3/uL (2.2-4.8); NEUTROPHILS % (AUTO) 73.5 % (42.0-75.0); PLATELET COUNT 158 X10^3/uL (150.0-450.0); RED BLOOD COUNT 4.45 X10^6/uL (4.7-6.0); RED CELL DISTRIBUTION WIDTH 14.4 % (11.6-16.5); WHITE BLOOD COUNT 6.1 X10^3/uL (3.6-10.0)
[2018-03-03 06:24] LABS: ALANINE AMINOTRANSFERASE 38 Units/L (12-78); ALKALINE PHOSPHATASE 98 Units/L (46-116); ASPARTATE AMINO TRANSFERASE 33 Units/L (15-37); BLOOD UREA NITROGEN 14 mg/dL (7-18); CALCIUM 8.2 mg/dL (8.5-10.1); CARBON DIOXIDE 26.9 mmol/L (21-32); CHLORIDE 103 mmol/L (98-107); COR NA(FOR HYPERGLY) 141 mmol/L (136-145); CREATININE 1.06 mg/dL (0.70-1.30); SODIUM 140 mmol/L (136-145); TOTAL PROTEIN 6.9 g/dL (6.4-8.2); eGFR NON BLACK RACES > 60 (>60)
[2018-03-03] MEDS: MORPHINE SULFATE INJ 2 MG INJ IVP PRN ×2 (08:11→20:44)
[2018-03-03] MEDS: NORVASC TAB 5 MG PO SCH (09:06)
[2018-03-03] MEDS: ZANTAC PO SCH ×2 (09:06→20:32)
[2018-03-03] MEDS: ROBITUSSIN DM PO SCH ×4 (09:06→20:33)
[2018-03-03] MEDS: LEVAQUIN PREMIX IV 500 MG 500 MG/100 ML BAG IV SCH (09:06)
[2018-03-03] MEDS: FLONASE NASAL SPRAY ENOSTRIL SCH (09:07)
[2018-03-03] MEDS: PULMICORT NEB TX 0.5 MG NEB SCH ×2 (09:14→20:56)
[2018-03-03] MEDS: ZITHROMAX INJ 500 MG VIAL 500 MG in NS 250 ML IV 250 ML IV SCH (11:03)
[2018-03-03] MEDS: LOVENOX INJ 40 MG SYR SC SCH (17:40)
[2018-03-03] MEDS: COLACE CAP 100 MG PO SCH (20:32)
[2018-03-03] MEDS: MILK OF MAGNESIA PO SCH ×2 (20:34→20:37)
[2018-03-03] MEDS: SNACK - Diabetic Appropriate PO SCH (21:28)
[2018-03-04] MEDS: XANAX PO SCH ×3 (06:15→22:54)
[2018-03-04] MEDS: NEURONTIN CAP 400 MG PO SCH ×3 (06:15→22:53)
[2018-03-04 06:47] LABS: BASOPHILS % (AUTO) 0.3 % (0.2-1.0); EOSINOPHILS % (AUTO) 0.5 % (0.9-2.9); HEMOGLOBIN 13.9 g/dL (13.5-18.0); LYMPHOCYTES # (AUTO) 1.2 X10^3/uL (1.3-2.9); LYMPHOCYTES % (AUTO) 21.6 % (21.0-51.0); MEAN CORPUSCULAR HEMOGLOBIN 30.4 pg (27.0-34.0); MEAN CORPUSCULAR HGB CONC 33.9 g/dL (33.0-35.0); MEAN CORPUSCULAR VOLUME 89.8 fL (80.0-100.0); MEAN PLATELET VOLUME 7.8 fL (7.4-11.0); MONOCYTES # (AUTO) 0.6 x10^3/uL (0.3-0.8); MONOCYTES % (AUTO) 10.6 % (0.0-13.0); NEUTROPHILS # (AUTO) 3.8 x10^3/uL (2.2-4.8); PLATELET COUNT 179 X10^3/uL (150.0-450.0); RED BLOOD COUNT 4.56 X10^6/uL (4.7-6.0); RED CELL DISTRIBUTION WIDTH 14.6 % (11.6-16.5); WHITE BLOOD COUNT 5.6 X10^3/uL (3.6-10.0)
[2018-03-04 07:14] LABS: ALANINE AMINOTRANSFERASE 43 Units/L (12-78); ALKALINE PHOSPHATASE 94 Units/L (46-116); ASPARTATE AMINO TRANSFERASE 29 Units/L (15-37); BLOOD UREA NITROGEN 15 mg/dL (7-18); CALCIUM 8.5 mg/dL (8.5-10.1); CARBON DIOXIDE 25.6 mmol/L (21-32); CHLORIDE 104 mmol/L (98-107); COR CA(FOR HYPOALB) 9.3 mg/dL (8.5-10.1); COR NA(FOR HYPERGLY) 141 mmol/L (136-145); CREATININE 1.04 mg/dL (0.70-1.30); SODIUM 140 mmol/L (136-145); TOTAL PROTEIN 7.1 g/dL (6.4-8.2); eGFR NON BLACK RACES > 60 (>60)
[2018-03-04] MEDS: PULMICORT NEB TX 0.5 MG NEB SCH ×2 (09:06→21:24)
[2018-03-04] MEDS: DUONEB 0.5 MG/3 MG NEB SCH ×4 (09:06→21:24)
[2018-03-04] MEDS: FLONASE NASAL SPRAY ENOSTRIL SCH (09:49)
[2018-03-04] MEDS: LEVAQUIN PREMIX IV 500 MG 500 MG/100 ML BAG IV SCH (09:50)
[2018-03-04] MEDS: LOVENOX INJ 40 MG SYR SC SCH (09:50)
[2018-03-04] MEDS: ZITHROMAX INJ 500 MG VIAL 500 MG in NS 250 ML IV 250 ML IV SCH (09:52)
[2018-03-04] MEDS: ROBITUSSIN DM PO SCH ×4 (09:52→20:17)
[2018-03-04] MEDS: NORVASC TAB 5 MG PO SCH (09:52)
[2018-03-04] MEDS: ZANTAC PO SCH ×2 (09:52→20:16)
[2018-03-04] MEDS: MORPHINE SULFATE INJ 2 MG INJ IVP PRN (09:53)
[2018-03-04] MEDS: TUSSIONEX PENNKINETIC SUSP PO PRN (11:39)
[2018-03-04] MEDS: SOLU-Medrol 40 MG VIAL IVP SCH ×2 (12:38→20:14)
--- NOTE | 2018-03-04 13:50 | RAD ---
HISTORY: Pneumonia Study: Single-view chest Comparison: 03/02/2018 Findings: The trachea is midline. The cardiac silhouette is unremarkable. There has been slight interval worsening of right upper lobe infiltrate, consistent with pneumonia. Infiltrate is also suggested within the right lung base as well. There is no pleural effusion or pneumothorax. The bony thorax is grossly intact. IMPRESSION: 1. Slight interval worsening of right upper lobe infiltrate as well as likely right basilar infiltrate, consistent with pneumonia Reported By:
[2018-03-04] MEDS: MORPHINE 60 MG PO PRN (14:23)
[2018-03-04] MEDS ORDERED: NS 1/2 1000 ML IV 1,000 ML IV ONE (14:26)
[2018-03-04] MEDS: NS 1/2 1000 ML IV 1,000 ML IV SCH (14:39)
[2018-03-04] MEDS: COLACE CAP 100 MG PO SCH (20:15)
[2018-03-04] MEDS: SNACK - Diabetic Appropriate PO SCH (20:15)
[2018-03-04] MEDS: MILK OF MAGNESIA PO SCH (20:16)
[2018-03-04] MEDS: HumuLIN R SUBCUT PRN (20:17)
[2018-03-04] MEDS: PERCOCET TAB 5/325 MG PO PRN (21:17)
[2018-03-05] MEDS: SOLU-Medrol 40 MG VIAL IVP SCH (03:24)
[2018-03-05] MEDS ORDERED: SOLU-Medrol 40 MG VIAL ONE (03:26)
[2018-03-05] MEDS ORDERED: NS 1/2 1000 ML IV 1,000 ML IV ONE (04:27)
[2018-03-05] MEDS: NS 1/2 1000 ML IV 1,000 ML IV SCH (04:30)
[2018-03-05] MEDS: XANAX PO SCH ×3 (05:35→21:12)
[2018-03-05] MEDS: NEURONTIN CAP 400 MG PO SCH ×3 (05:35→21:12)
[2018-03-05] MEDS: HumuLIN R SUBCUT PRN ×4 (05:54→21:29)
[2018-03-05 05:58] LABS: BASOPHILS % (AUTO) 0.2 % (0.2-1.0); HEMATOCRIT 41.1 % (42.0-54.0); LYMPHOCYTES # (AUTO) 0.5 X10^3/uL (1.3-2.9); LYMPHOCYTES % (AUTO) 10.5 % (21.0-51.0); MEAN CORPUSCULAR HEMOGLOBIN 30.2 pg (27.0-34.0); MEAN CORPUSCULAR HGB CONC 34.1 g/dL (33.0-35.0); MEAN CORPUSCULAR VOLUME 88.7 fL (80.0-100.0); MEAN PLATELET VOLUME 7.6 fL (7.4-11.0); MONOCYTES # (AUTO) 0.1 x10^3/uL (0.3-0.8); MONOCYTES % (AUTO) 2.3 % (0.0-13.0); NEUTROPHILS # (AUTO) 4.5 x10^3/uL (2.2-4.8); PLATELET COUNT 187 X10^3/uL (150.0-450.0); RED BLOOD COUNT 4.64 X10^6/uL (4.7-6.0); RED CELL DISTRIBUTION WIDTH 14.1 % (11.6-16.5); WHITE BLOOD COUNT 5.2 X10^3/uL (3.6-10.0)
[2018-03-05 06:08] LABS: ALANINE AMINOTRANSFERASE 51 Units/L (12-78); ALBUMIN 3.1 g/dL (3.4-5.0); ALKALINE PHOSPHATASE 101 Units/L (46-116); ASPARTATE AMINO TRANSFERASE 28 Units/L (15-37); BLOOD UREA NITROGEN 21 mg/dL (7-18); CALCIUM 8.4 mg/dL (8.5-10.1); CARBON DIOXIDE 22.1 mmol/L (21-32); CHLORIDE 100 mmol/L (98-107); COR CA(FOR HYPOALB) 9.1 mg/dL (8.5-10.1); COR NA(FOR HYPERGLY) 136 mmol/L (136-145); CREATININE 0.96 mg/dL (0.70-1.30); SODIUM 133 mmol/L (136-145); TOTAL PROTEIN 7.3 g/dL (6.4-8.2); eGFR NON BLACK RACES > 60 (>60)
[2018-03-05] MEDS: PULMICORT NEB TX 0.5 MG NEB SCH ×2 (09:32→20:28)
[2018-03-05] MEDS: MUCOMYST 20% 200 MG/ML NEB SCH ×4 (09:32→20:28)
[2018-03-05] MEDS: DUONEB 0.5 MG/3 MG NEB SCH ×4 (09:32→20:28)
[2018-03-05] MEDS: LEVAQUIN PREMIX IV 500 MG 500 MG/100 ML BAG IV SCH (09:41)
[2018-03-05] MEDS: LOVENOX INJ 40 MG SYR SC SCH (09:41)
[2018-03-05] MEDS: FLONASE NASAL SPRAY ENOSTRIL SCH (09:41)
[2018-03-05] MEDS: ZITHROMAX INJ 500 MG VIAL 500 MG in NS 250 ML IV 250 ML IV SCH (09:43)
[2018-03-05] MEDS: ROBITUSSIN DM PO SCH ×4 (09:44→21:11)
[2018-03-05] MEDS: NORVASC TAB 5 MG PO SCH (09:44)
[2018-03-05] MEDS: ZANTAC PO SCH ×2 (09:44→21:12)
[2018-03-05] MEDS: PERCOCET TAB 5/325 MG PO PRN ×2 (10:19→17:30)
[2018-03-05] MEDS ORDERED: NS 1/2 500 ML IV 500 ML IV SCH (12:00)
--- NOTE | 2018-03-05 12:09 | RAD ---
HISTORY: Follow-up pneumonia, cough Study: PA and lateral chest Comparison: PA and lateral chest 03/04/[address] chest 03/02/2018 Technique: PA and lateral chest Findings: EKG leads overlie the thorax. Soft tissues bone detail are normal heart airway are normal. The patchy interstitial nodular infiltrate in the right upper lobe has improved compared to yesterday's chest film. There is persistent mild interstitial nodular prominence the left lung is clear. There are no effusions or adenopathy. IMPRESSION: 1. Improvement but incomplete resolution of the interstitial nodular infiltrates in the right upper lobe. Findings are consistent with bronchopneumonia but improved compared to yesterday's film Reported By:
[2018-03-05] MEDS: MORPHINE 60 MG PO PRN (13:52)
--- NOTE | 2018-03-05 14:15 | PCM.PROG ---
Progress Note - Progress Note for Day of Date of Exam: 03/04/18 - Subjective Subjective: 62 WM ER ADMISSION ON 02/28 WITH ACUTE RESP DISTRESS AND PNEUMONIA. PT CURRENTLY ON PNEUMONIA PROTOCOL WITH BLOOD AND SPUTUM CULTURES COLLECTED ON ADMISSION, NEGATIVE AT THIS TIME.PT ON SUPPLEMENTAL O2. PT REPORTS FEELING A LITTLE IMPROVED. PT REPEAT CXR THIS AM WITH WORSENING INFILTRATE. PT CONTINUES WITH THICK SPUTUM PRODUCTION. PLAN TO CONTINUE RESP THERAPY, REPEAT AM LABS AND CHEST XRAY, SOLU MEDROL 40MG IV X 3 DOSES WITH MUCOMYST TO NEBS - Past Medical Family Social History Past Med/Fam/Surg Hx: No changes since H&P Allergies: Allergies No Known Drug Allergies Allergy (Verified 02/28/18 18:56) - Review of Systems ROS: No change since H&P - Vital Signs and I&O's Vital Signs: Temperature 98.4 F Pulse Rate [Right Brachial] 83 Pulse Rate 58 Respiratory Rate 27 Blood Pressure [Right Arm] 157/73 Blood Pressure [Left Calf] 132/64 Blood Pressure 134/60 O2 Sat by Pulse Oximetry 98 Intake and Output: Intake & Output 03/03/18 03/04/18 03/05/18 03/06/18 11:59 11:59 11:59 11:59 Intake Total 3040 / 3040 3549 / 3549 3876 / 3876 Output Total 4250 / 4250 1900 / 1900 3000 / 3000 Balance -1210 / -1210 1649 / 1649 876 / 876 - Physical Exam Oriented: Normal Eyes: Normal Ear: Normal Nose: Normal Throat: Red, Dry Respiratory: Diminished, Rhonchi Cardiovascular: Tachycardia. negative: Edema : Normal Auscultation: Bowel Sounds: Normal Tenderness: Normal Skin: Normal Musculoskeletal: Back:Thoracic, Back:Lumbar Psychiatric: Anxiety Affect: Anxious Speech Pattern: Clear, Appropriate - Laboratory and Diagnostics Result Diagrams: 03/05/18 05:33 03/05/18 05:33 Labs: 02/28/18 00:01 Sputum - Expectorated Sputum Sputum Culture - Final 02/28/18 00:01 Sputum - Expectorated Sputum - Final 02/28/18 22:30 Blood Blood Culture - Preliminary 02/28/18 22:25 Blood Blood Culture - Preliminary Laboratory WBC 5.2 X10^3/uL (3.6-10.0) 03/05/18 05:33 RBC 4.64 X10^6/uL (4.7-6.0) L 03/05/18 05:33 Hgb 14.0 g/dL (13.5-18.0) 03/05/18 05:33 Hct 41.1 % (42.0-54.0) L 03/05/18 05:33 MCV 88.7 fL (80.0-100.0) 03/05/18 05:33 MCH 30.2 pg (27.0-34.0) 03/05/18 05:33 MCHC 34.1 g/dL (33.0-35.0) 03/05/18 05:33 RDW 14.1 % (11.6-16.5) 03/05/18 05:33 Plt Count 187 X10^3/uL (150.0-450.0) 03/05/18 05:33 MPV 7.6 fL (7.4-11.0) 03/05/18 05:33 Neut % (Auto) 87.0 % (42.0-75.0) H 03/05/18 05:33 Lymph % (Auto) 10.5 % (21.0-51.0) L 03/05/18 05:33 [place] % (Auto) 2.3 % (0.0-13.0) 03/05/18 05:33 Eos % (Auto) 0.0 % (0.9-2.9) L 03/05/18 05:33 Baso % (Auto) 0.2 % (0.2-1.0) 03/05/18 05:33 Neut # (Auto) 4.5 x10^3/uL (2.2-4.8) 03/05/18 05:33 Lymph # (Auto) 0.5 X10^3/uL (1.3-2.9) L 03/05/18 05:33 [place] # (Auto) 0.1 x10^3/uL (0.3-0.8) L 03/05/18 05:33 Eos # (Auto) 0.0 x10^3/uL (0.0-0.2) 03/05/18 05:33 Baso # (Auto) 0.0 X10^3/uL (0.0-0.1) 03/05/18 05:33 Absolute Nucleated RBC 0.0 /100WBC 03/05/18 05:33 Sample Site Right radial 02/28/18 22:30 ABG pH 7.450 (7.35-7.45) 02/28/18 22:30 ABG pCO2 36.0 mmHg (35.0-45.0) 02/28/18 22:30 ABG pO2 60.0 mmHg (80.0-100.0) L 02/28/18 22:30 ABG HCO3 25.0 mmol/L (22-26) 02/28/18 22:30 ABG O2 Saturation 92.0 % (90-100) 02/28/18 22:30 ABG Base Excess 1.2 mmol/L (-2.0-2.0) 02/28/18 22:30 Darren Test Pos 02/28/18 22:30 A-a Gradient 45.0 mmHg 02/28/18 22:30 FiO2 21.0 02/28/18 22:30 Blood Gas Comments Aidan well jts 02/28/18 22:30 Sodium 133 mmol/L (136-145) L 03/05/18 05:33 Corrected Sodium 136 mmol/L (136-145) 03/05/18 05:33 Potassium 4.8 mmol/L (3.5-5.1) 03/05/18 05:33 Chloride 100 mmol/L (98-107) 03/05/18 05:33 Carbon Dioxide 22.1 mmol/L (21-32) 03/05/18 05:33 BUN 21 mg/dL (7-18) H 03/05/18 05:33 Creatinine 0.96 mg/dL (0.70-1.30) 03/05/18 05:33 Est GFR (MDRD) Af Amer > 60 (>60) 03/05/18 05:33 Est GFR (MDRD) Non-Af > 60 (>60) 03/05/18 05:33 Glucose 242 mg/dL (65-99) H 03/05/18 05:33 POC Glucose (mg/dL) 225 mg/dL (65-99) H 03/05/18 11:25 Lactic Acid 1.5 mmol/L (0.4-2.0) 02/28/18 22:30 Calcium 8.4 mg/dL (8.5-10.1) L 03/05/18 05:33 Corrected Calcium 9.1 mg/dL (8.5-10.1) 03/05/18 05:33 Magnesium 2.1 mg/dL (1.7-2.9) 03/02/18 05:37 Total Bilirubin 0.30 mg/dL (0.2-1.0) 03/05/18 05:33 AST 28 Units/L (15-37) 03/05/18 05:33 ALT 51 Units/L (12-78) 03/05/18 05:33 Alkaline Phosphatase 101 Units/L (46-116) 03/05/18 05:33 Total Protein 7.3 g/dL (6.4-8.2) 03/05/18 05:33 Albumin 3.1 g/dL (3.4-5.0) L 03/05/18 05:33 Globulin 4.2 g/dL (2.5-4.5) 03/05/18 05:33 Albumin/Globulin Ratio 0.7 Ratio (1.1-2.1) L 03/05/18 05:33 Influenza Type A (PCR) Negative (NEGATIVE) 03/01/18 11:10 Influenza Type B (PCR) Negative (NEGATIVE) 03/01/18 11:10 S. pyogenes (TEM-PCR) Not detected (NOT DETECT) 02/28/18 22:10 - Plan (1) Pneumonia Status: Acute Plan: PNEUMONIA PROTOCOL. IV ATBX, RESP THERAPY, SUPPLEMENTAL O2, REPEAT ABG. AM CBC CMP. BP AND BS CONTROL. VERIFY HOME MEDICATION, IV STEROIDS (2) Acute respiratory distress Status: Acute (3) Diabetes Status: Chronic (4) Hypertension Status: Chronic (5) Chronic lumbar radiculopathy Status: Chronic
--- NOTE | 2018-03-05 14:16 | PCM.PROG ---
Progress Note - Progress Note for Day of Date of Exam: 03/05/18 - Subjective Subjective: 62 WM ER ADMISSION ON 02/28 WITH ACUTE RESP DISTRESS AND PNEUMONIA. PT CURRENTLY ON PNEUMONIA PROTOCOL WITH BLOOD AND SPUTUM CULTURES COLLECTED ON ADMISSION, NEGATIVE AT THIS TIME.PT ON SUPPLEMENTAL O2. PT REPORTS FEELING BETTTER THIS AM, DIDNT REST WELL DUE TO IV STEROIDS. PT REPORTS LESS SPUTUM PRODUCTION. PT CXR THIS AM WITH IMPROVEMENT FROM ONE DAY AGO.DISCUSSED POSSIBLE D/C HOME TOMORROW IF HE CONTINUES TO IMPROVE. - Past Medical Family Social History Past Med/Fam/Surg Hx: No changes since H&P Allergies: Allergies No Known Drug Allergies Allergy (Verified 02/28/18 18:56) - Review of Systems ROS: No change since H&P - Vital Signs and I&O's Vital Signs: Temperature 98.4 F Pulse Rate [Right Brachial] 83 Pulse Rate 58 Respiratory Rate 27 Blood Pressure [Right Arm] 157/73 Blood Pressure [Left Calf] 132/64 Blood Pressure 134/60 O2 Sat by Pulse Oximetry 98 Intake and Output: Intake & Output 03/03/18 03/04/18 03/05/18 03/06/18 11:59 11:59 11:59 11:59 Intake Total 3040 / 3040 3549 / 3549 3876 / 3876 Output Total 4250 / 4250 1900 / 1900 3000 / 3000 Balance -1210 / -1210 1649 / 1649 876 / 876 - Physical Exam Oriented: Normal Eyes: Normal Ear: Normal Nose: Normal Throat: Red, Dry Respiratory: Diminished, Rhonchi Cardiovascular: Tachycardia. negative: Edema : Normal Auscultation: Bowel Sounds: Normal Tenderness: Normal Skin: Normal Musculoskeletal: Back:Thoracic, Back:Lumbar Psychiatric: Anxiety Affect: Anxious Speech Pattern: Clear, Appropriate - Laboratory and Diagnostics Result Diagrams: 03/05/18 05:33 03/05/18 05:33 Labs: 02/28/18 00:01 Sputum - Expectorated Sputum Sputum Culture - Final 02/28/18 00:01 Sputum - Expectorated Sputum - Final 02/28/18 22:30 Blood Blood Culture - Preliminary 02/28/18 22:25 Blood Blood Culture - Preliminary Laboratory WBC 5.2 X10^3/uL (3.6-10.0) 03/05/18 05:33 RBC 4.64 X10^6/uL (4.7-6.0) L 03/05/18 05:33 Hgb 14.0 g/dL (13.5-18.0) 03/05/18 05:33 Hct 41.1 % (42.0-54.0) L 03/05/18 05:33 MCV 88.7 fL (80.0-100.0) 03/05/18 05:33 MCH 30.2 pg (27.0-34.0) 03/05/18 05:33 MCHC 34.1 g/dL (33.0-35.0) 03/05/18 05:33 RDW 14.1 % (11.6-16.5) 03/05/18 05:33 Plt Count 187 X10^3/uL (150.0-450.0) 03/05/18 05:33 MPV 7.6 fL (7.4-11.0) 03/05/18 05:33 Neut % (Auto) 87.0 % (42.0-75.0) H 03/05/18 05:33 Lymph % (Auto) 10.5 % (21.0-51.0) L 03/05/18 05:33 [place] % (Auto) 2.3 % (0.0-13.0) 03/05/18 05:33 Eos % (Auto) 0.0 % (0.9-2.9) L 03/05/18 05:33 Baso % (Auto) 0.2 % (0.2-1.0) 03/05/18 05:33 Neut # (Auto) 4.5 x10^3/uL (2.2-4.8) 03/05/18 05:33 Lymph # (Auto) 0.5 X10^3/uL (1.3-2.9) L 03/05/18 05:33 [place] # (Auto) 0.1 x10^3/uL (0.3-0.8) L 03/05/18 05:33 Eos # (Auto) 0.0 x10^3/uL (0.0-0.2) 03/05/18 05:33 Baso # (Auto) 0.0 X10^3/uL (0.0-0.1) 03/05/18 05:33 Absolute Nucleated RBC 0.0 /100WBC 03/05/18 05:33 Sample Site Right radial 02/28/18 22:30 ABG pH 7.450 (7.35-7.45) 02/28/18 22:30 ABG pCO2 36.0 mmHg (35.0-45.0) 02/28/18 22:30 ABG pO2 60.0 mmHg (80.0-100.0) L 02/28/18 22:30 ABG HCO3 25.0 mmol/L (22-26) 02/28/18 22:30 ABG O2 Saturation 92.0 % (90-100) 02/28/18 22:30 ABG Base Excess 1.2 mmol/L (-2.0-2.0) 02/28/18 22:30 Darren Test Pos 02/28/18 22:30 A-a Gradient 45.0 mmHg 02/28/18 22:30 FiO2 21.0 02/28/18 22:30 Blood Gas Comments Aidan well jts 02/28/18 22:30 Sodium 133 mmol/L (136-145) L 03/05/18 05:33 Corrected Sodium 136 mmol/L (136-145) 03/05/18 05:33 Potassium 4.8 mmol/L (3.5-5.1) 03/05/18 05:33 Chloride 100 mmol/L (98-107) 03/05/18 05:33 Carbon Dioxide 22.1 mmol/L (21-32) 03/05/18 05:33 BUN 21 mg/dL (7-18) H 03/05/18 05:33 Creatinine 0.96 mg/dL (0.70-1.30) 03/05/18 05:33 Est GFR (MDRD) Af Amer > 60 (>60) 03/05/18 05:33 Est GFR (MDRD) Non-Af > 60 (>60) 03/05/18 05:33 Glucose 242 mg/dL (65-99) H 03/05/18 05:33 POC Glucose (mg/dL) 225 mg/dL (65-99) H 03/05/18 11:25 Lactic Acid 1.5 mmol/L (0.4-2.0) 02/28/18 22:30 Calcium 8.4 mg/dL (8.5-10.1) L 03/05/18 05:33 Corrected Calcium 9.1 mg/dL (8.5-10.1) 03/05/18 05:33 Magnesium 2.1 mg/dL (1.7-2.9) 03/02/18 05:37 Total Bilirubin 0.30 mg/dL (0.2-1.0) 03/05/18 05:33 AST 28 Units/L (15-37) 03/05/18 05:33 ALT 51 Units/L (12-78) 03/05/18 05:33 Alkaline Phosphatase 101 Units/L (46-116) 03/05/18 05:33 Total Protein 7.3 g/dL (6.4-8.2) 03/05/18 05:33 Albumin 3.1 g/dL (3.4-5.0) L 03/05/18 05:33 Globulin 4.2 g/dL (2.5-4.5) 03/05/18 05:33 Albumin/Globulin Ratio 0.7 Ratio (1.1-2.1) L 03/05/18 05:33 Influenza Type A (PCR) Negative (NEGATIVE) 03/01/18 11:10 Influenza Type B (PCR) Negative (NEGATIVE) 03/01/18 11:10 S. pyogenes (TEM-PCR) Not detected (NOT DETECT) 02/28/18 22:10 - Plan (1) Pneumonia Status: Acute Plan: PNEUMONIA PROTOCOL. IV ATBX, RESP THERAPY, SUPPLEMENTAL O2, REPEAT ABG. AM CBC CMP. BP AND BS CONTROL. VERIFY HOME MEDICATION, IV STEROIDS (2) Acute respiratory distress Status: Acute (3) Diabetes Status: Chronic (4) Hypertension Status: Chronic (5) Chronic lumbar radiculopathy Status: Chronic
[2018-03-05] MEDS: SNACK - Diabetic Appropriate PO SCH (20:19)
[2018-03-05] MEDS: COLACE CAP 100 MG PO SCH (22:44)
[2018-03-05] MEDS: MILK OF MAGNESIA PO SCH (22:44)
[2018-03-06] MEDS: PERCOCET TAB 5/325 MG PO PRN (01:40)
[2018-03-06 05:38] LABS: BASOPHILS # (AUTO) 0.1 X10^3/uL (0.0-0.1); BASOPHILS % (AUTO) 1.2 % (0.2-1.0); EOSINOPHILS % (AUTO) 0.1 % (0.9-2.9); HEMATOCRIT 41.6 % (42.0-54.0); HEMOGLOBIN 13.9 g/dL (13.5-18.0); LYMPHOCYTES # (AUTO) 1.2 X10^3/uL (1.3-2.9); LYMPHOCYTES % (AUTO) 17.7 % (21.0-51.0); MEAN CORPUSCULAR HEMOGLOBIN 29.7 pg (27.0-34.0); MEAN CORPUSCULAR HGB CONC 33.4 g/dL (33.0-35.0); MEAN CORPUSCULAR VOLUME 88.9 fL (80.0-100.0); MEAN PLATELET VOLUME 7.9 fL (7.4-11.0); MONOCYTES # (AUTO) 0.7 x10^3/uL (0.3-0.8); MONOCYTES % (AUTO) 10.4 % (0.0-13.0); NEUTROPHILS # (AUTO) 4.9 x10^3/uL (2.2-4.8); NEUTROPHILS % (AUTO) 70.6 % (42.0-75.0); PLATELET COUNT 194 X10^3/uL (150.0-450.0); RED BLOOD COUNT 4.68 X10^6/uL (4.7-6.0); RED CELL DISTRIBUTION WIDTH 14.2 % (11.6-16.5); WHITE BLOOD COUNT 6.9 X10^3/uL (3.6-10.0)
[2018-03-06] MEDS: XANAX PO SCH (05:50)
[2018-03-06] MEDS: NEURONTIN CAP 400 MG PO SCH (05:50)
[2018-03-06 05:55] LABS: ALANINE AMINOTRANSFERASE 61 Units/L (12-78); ALKALINE PHOSPHATASE 92 Units/L (46-116); ASPARTATE AMINO TRANSFERASE 38 Units/L (15-37); BLOOD UREA NITROGEN 24 mg/dL (7-18); CALCIUM 8.5 mg/dL (8.5-10.1); CARBON DIOXIDE 23.9 mmol/L (21-32); CHLORIDE 104 mmol/L (98-107); COR CA(FOR HYPOALB) 9.3 mg/dL (8.5-10.1); COR NA(FOR HYPERGLY) 139 mmol/L (136-145); CREATININE 1.04 mg/dL (0.70-1.30); SODIUM 137 mmol/L (136-145); TOTAL PROTEIN 6.8 g/dL (6.4-8.2); eGFR NON BLACK RACES > 60 (>60)
[2018-03-06] MEDS: HumuLIN R SUBCUT PRN (05:57)
[2018-03-06] MEDS: MORPHINE 60 MG PO PRN (07:52)
--- NOTE | 2018-03-06 09:33 | RAD ---
HISTORY: Follow-up pneumonia, cough Study: PA chest Comparison: PA and lateral chest 03/05/2018 Technique: PA chest Findings: EKG leads overlie the thorax. Heart size configuration airway and vascularity are normal bone detail is normal. The lungs show continued clearing with minimal interstitial residual prominence in the right upper lobe but again improved compared to yesterday's film and improved from 03/04/2018 film. IMPRESSION: 1. Continued improvement in the right upper lobe infiltrate with minimal residual on current chest film. Reported By:
[2018-03-06] MEDS: LEVAQUIN PREMIX IV 500 MG 500 MG/100 ML BAG IV SCH (09:41)
[2018-03-06] MEDS: ROBITUSSIN DM PO SCH (09:41)
[2018-03-06] MEDS: LOVENOX INJ 40 MG SYR SC SCH (09:42)
[2018-03-06] MEDS: NORVASC TAB 5 MG PO SCH (09:43)
[2018-03-06] MEDS: ZANTAC PO SCH (09:43)
[2018-03-06] MEDS: MUCOMYST 20% 200 MG/ML NEB SCH (09:46)
[2018-03-06] MEDS: DUONEB 0.5 MG/3 MG NEB SCH (09:46)
[2018-03-06] MEDS: PULMICORT NEB TX 0.5 MG NEB SCH (09:47)
[2018-03-06] MEDS: FLONASE NASAL SPRAY ENOSTRIL SCH (09:49)
[2018-03-06] MEDS: ZITHROMAX INJ 500 MG VIAL 500 MG in NS 250 ML IV 250 ML IV SCH (10:30)
[2018-03-06 13:52] VITALS: BP 132/74
== END 2018-03-06 14:15 | disposition home or self-care (01) | DRG 195 ==
LOC: ER 18:55 → ICU 23:58
PROVIDERS: ADMIT Obstetrics & Gynecology Obstetrics; ATTEND Internal Medicine
CPT/HCPCS: 36415; 36600; 71010; 71020; 71045; 71046; 71260; 80053; 82803; 83605; 83735; 85025; 87040; 87070; 87205; 87502; 87651; 94640; 96365; 96374; 97110; 97161; 97166; 99283; 99284; A4222; J0456; J0696; J1650; J1815; J1956; J2270; J2920; J3475; J3490; J7050; J7620; J7626